=== PATIENT | male | born 1980 | race Caucasian/White ===

== ENCOUNTER 2016-10-16 17:10 | Emergency (ER) | payer BC ==
[~2016-10-16] VITALS: Ht 172.7 cm; Wt 68.0 kg
[2016-10-16 17:12] VITALS: BP 128/74; PULSE 84; RESP 18; TEMP 98.3; O2SAT 96
--- NOTE | 2016-10-16 17:35 | PD ---
HPI Chief Complaint: OD/ Ingestion Time Seen by Provider: 17:33 Travel History International Travel<30 days: No Contact w/Intl Traveler<30days: No Traveled to known affect area: No History of Present Illness HPI Patient comes in after reportedly accidentally overdosing on heroin. Patient states he does heroin daily and usually does a small amount throughout the day completing the bag. Patient said used more than he normally takes today causing the overdose. Patient was given Narcan by paramedics and patient woke up. Patient denies any complaints currently. Denies any chest pain, headache, neck pain, nausea, vomiting, abdominal pain, shortness of breath, or homicidal ideations, suicidal ideations, or numbness or tingling anywhere. Patient states he does not want to be evaluated further secondary to staying at a sober house and would like to leave and if he has to sign out AGAINST MEDICAL ADVICE. [facility] Past Medical History Medical History: Denies Significant Hx Past Surgical History Surgical History: No Previous Surgery Social History Alcohol Use: No Tobacco Use: Yes (1 PPD) Substance Use: Yes (HEROIN) Allergies-Medications (Allergen,Severity, Reaction): Coded Allergies: No Known Allergies (Unverified , 10/16/16) Reported Meds & Prescriptions Reported Meds & Active Scripts Active No Active Prescriptions or Reported Medications Review of Systems Except as stated in HPI: all other systems reviewed are Neg Physical Exam Narrative GENERAL: Well-developed, well nourished, in no acute distress, and non-ill appearing. SKIN: Focused skin assessment warm and dry. HEAD: Atraumatic. Normocephalic. EYES: Pupils equal and round. EOMI. No scleral icterus. No injection or drainage. ENT: No nasal bleeding or discharge. Mucous membranes pink and moist. NECK: Trachea midline. No JVD. Supple. No nuclear rigidity. CARDIOVASCULAR: Regular rate and rhythm. No murmur appreciated. RESPIRATORY: No accessory muscle use. No respiratory distress. Clear to auscultation. Breath sounds equal bilaterally. MUSCULOSKELETAL: No obvious deformities. No clubbing. No cyanosis. No edema. Full range of motion. NEUROLOGICAL: Awake and alert. No obvious cranial nerve deficits. Motor grossly within normal limits. Normal speech. PSYCHIATRIC: Appropriate mood and affect; insight and judgment normal. Data Data Last Documented VS Vital Signs Date Time Temp Pulse Resp B/P Pulse Ox O2 Delivery O2 Flow Rate FiO2 10/16/16 17:12 98.3 84 18 128/74 96 MDM Medical Decision Making Medical Screen Exam Complete: Yes Emergency Medical Condition: Yes Differential Diagnosis Accidental overdose, intentional overdose, other Narrative Course I discussed at length with the patient the importance of staying in the emergency department until a Narcan has worn off so that he does not collapse again secondary to the heroin still being in his system. Patient verbalizes understanding of this and states that he understands that he could potentially if he leaves, but is willing to take this risk. Patient states that he does heroin daily and he will be fine. Discussed patient with Dr. Rutherford, who saw and evaluated and has similar conversation with the patient and recommends patient's stay in the emergency department however patient is refusing this. Patient does not currently meet Ryder act criteria. Patient is alert, oriented , and reports that he can be watched by friends and will be monitored by them. AMA: The risks of leaving against medical advice without further evaluation treatment were discussed with the patient. These risks include cardiac dysfunction, cardiac dysrhythmia, possible heart attack, possible stroke or . The patient indicated understanding of these risks and appeared to have the capacity to make this decision. Patient in no obvious distress upon re-evaluation. Instructed patient to return to ED immediately, if symptoms return/worsen. Pt showed understanding of above instructions. Pt ambulated without difficulty out of ED at discharge. Diagnosis Primary Impression: Left against medical advice Additional Impressions: Substance abuse Accidental heroin overdose Qualified Code: T40.1X1A - Accidental heroin overdose, initial encounter Scripts No Active Prescriptions or Reported Meds Disposition: 07 AGAINST MEDICAL ADVICE Condition: Stable Aaron Evans Oct 16, 2016 17:35
--- NOTE | 2016-10-16 18:07 | PD ---
Data Data Last Documented VS Vital Signs Date Time Temp Pulse Resp B/P Pulse Ox O2 Delivery O2 Flow Rate FiO2 10/16/16 17:12 98.3 84 18 128/74 96 MDM Supervised Visit with LEELA: Yes Narrative Course The history, exam, and medical decision-making in the associated midlevel provider note were completed with my assistance. I reviewed and agree with the findings presented. I attest that I had a [id number] encounter with the patient on the same day, and personally performed and documented my assessment and findings in the medical record. *My assessment and Findings: This is a 36-year-old male who presents following an opiate overdose that was reversed with Narcan. Patient is very eager to leave. He lives in a custodial house and doesn't want to be late home. He understands that there is a risk that his respiratory suppression will recur and 1 hour and he could . He is going to take that risk. He says that he will let people with him know what happened and he will be with people at all times. I asked him to leave AGAINST MEDICAL ADVICE. Scripts No Active Prescriptions or Reported Meds Cindy Rutherford MD Oct 16, 2016 18:07
== END 2016-10-16 18:28 | disposition left against medical advice (07) ==
LOC: NEPC 17:10
DX: T40.1X1A Poisoning by heroin, accidental (unintentional), initial encounter (principal); F19.10 Other psychoactive substance abuse, uncomplicated; F17.200 Nicotine dependence, unspecified, uncomplicated; Z53.29 Procedure and treatment not carried out because of patient's decision for other reasons
CPT/HCPCS: 99284